=== PATIENT | female | born 1965 | race Caucasian/White ===

== ENCOUNTER 2025-03-30 13:05 | Outpatient (REF) | payer BC, SELFPAY ==
[2025-03-30 18:02] LABS: MANUAL DIFF FLAG NO
[2025-03-30 18:19] LABS: Hematocrit 41.7 % (37.0-47.0); Hemoglobin 14.0 g/dl (12.0-16.0); Imm Gran Abs Auto 0.03 X10*3/uL (0.00-0.03); Imm Gran Pct Auto 0.3 % (0.0-0.4); Lymphocytes Absolute Auto 3.1 X10*3/uL (1.2-4.9); Mean Corpuscular HGB Conc 33.6 g/dl (31.0-35.0); Mean Corpuscular Hemoglobin 30.6 pg (27.0-33.0); Mean Corpuscular Volume 91.0 fL (80.0-98.0); NRBC Abs Auto 0.000 X10*3/uL (0.0-0.012); NRBC Pct Auto 0.0 /100WBC (0.0-0.2); Platelet Count 331 X10*3/uL (160-400); Red Blood Count 4.58 X10*6/uL (4.20-5.50); White Blood Count 10.6 X10*3/uL (4.8-10.8)
[2025-03-30 18:37] LABS: Alanine Aminotransferase 18 U/L (0-31); Albumin Level 4.4 g/dL (3.5-5.0); Alkaline Phosphatase 98 U/L (39-117); Anion Gap 11 (12-20); Aspartate Amino Transferase 22 U/L (5-31); Blood Urea Nitrogen 17 mg/dL (9-16); Calcium 9.6 mg/dL (8.4-10.2); Carbon Dioxide 30 mmol/L (22-29); Chloride 103 mmol/L (96-108); Cholesterol 262 mg/dL (<200); Estimated Glomerular Filt Rate > 60; HDL Cholesterol 66 mg/dL (>40); Potassium 3.7 mmol/L (3.3-5.1); Sodium 140 mmol/L (135-145); Total Protein 7.3 g/dL (6.5-8.0); Triglycerides 114 mg/dL (<150)
== END 2025-03-30 13:06 | disposition home or self-care (01) ==
LOC: HO.WFDLDS 13:05
PROVIDERS: PCP Internal Medicine; Visit Provider Internal Medicine
DX: Z00.00 Encounter for general adult medical examination without abnormal findings (principal); Z13.228 Encounter for screening for other metabolic disorders; Z13.0 Encounter for screening for diseases of the blood and blood-forming organs and certain disorders involving the immune mechanism; Z13.220 Encounter for screening for lipoid disorders; F33.41 Major depressive disorder, recurrent, in partial remission; M17.0 Bilateral primary osteoarthritis of knee; Z98.890 Other specified postprocedural states
CPT/HCPCS: 36415; 80053; 80061; 83036; 84443; 85025; 96127

== ENCOUNTER 2025-03-30 13:05 | Outpatient (AMB) | payer BC, SELFPAY ==
--- NOTE | 2025-03-30 13:12 | MHC.PC.OV ---
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 Intake Note: New patient visit Home Office Representative Required: No Allergies No Known Allergies Allergy (Verified 03/30/25 13:13) Tobacco use date assessed: 03/30/25 Dental Screening Dental Screen Date: 03/30/25 Did you have a dental visit in the last 12 months?: Yes Did you have a dental problem in the last 6 months where you did not have access to dental care?: No Was dental information given to patient?: Patient has dentist HPI HPI Comments History of Present Illness Details 59 year old female with past medical history of anxiety/depression presenting to [facility]. Transferring from [facility]. Records not yet received. BH: on buproprion 300mg daily, citalopram 20mg daily. Feels stable on these medications. MSK: History of left knee surgery-Dr Shane. Bilateral knee osteoarthritis-hard to walk upstairs. Bone on bone Mammo: May 2024 Colonoscopy: Jul 2023-[facility] -10 year repeat Declines flu vaccination ROS CONSTITUTIONAL: Denies weight loss, fever and chills. HEENT: Denies changes in vision and hearing. RESPIRATORY: Denies SOB and cough. CV: Denies palpitations and CP GI: Denies abdominal pain, nausea, vomiting and diarrhea. : Denies dysuria and urinary frequency. MSK:see HPI SKIN: Denies rash and pruritus. NEUROLOGICAL: Denies headache PSYCHIATRIC: Denies recent changes in mood. PHYSICAL EXAM: GENERAL: Alert and oriented x 3. NAD EYES: EOMI. Anicteric. HENT: Moist mucous membranes. No scleral icterus. No cervical lymphadenopathy. LUNGS: Clear to auscultation bilaterally. CARDIOVASCULAR: Regular rate and rhythm. No murmur. No JVD. ABDOMEN: Soft, non-tender +bs EXTREMITIES: No edema. Non-tender. SKIN: No rashes or lesions. Warm. NEUROLOGIC: No focal neurological deficits. CN II-XII grossly intact PSYCHIATRIC: Cooperative. 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 1. Little interest or pleasure in doing things: not at all 2. Feeling down, depressed, or hopeless: not at all 3. Trouble falling or staying asleep, or sleeping too much: not at all 4. Feeling tired or having little energy: several days 5. Poor appetite or overeating: not at all 6. Feeling bad about yourself - or that you are a failure or have let yourself or your family down: not at all 7. Trouble concentrating on things, such as reading the newspaper or watching television: not at all 8. Moving or speaking so slowly that other people could have noticed. Or the opposite - being so fidgety or restless that you have been moving around a lot more than usual: not at all 9. Thoughts that you would be better off or of hurting yourself in some way: not at all Total score: 1 Depression Screening Interpretation: Negative Depression Screening Done: Yes 45093 - PHQ-9 Billing: Yes Source: Developed by Drs. Sincere Cabrera, Sofi Tony, Ramiro Roberson and colleagues, with an educational itma from [employer]. Thrive Questionnaire Date Thrive assessed: 03/30/25 I am a: Patient What is your living situation today?: I have a steady place to live Within the past 12 months, did the food you bought not last and you didn't have the money to get more?: Never true Within the past 12 months, did you worry whether your food would run out before you got money to buy more?: Never true Do you have trouble paying for medicines?: No Do you have trouble getting transportation to medical appointments?: No Do you have trouble paying your heating and electricity bill?: No Do you have trouble taking care of your child, family member or friend?: No Do you have trouble with day-to-day activities such as bathing, preparing meals, shopping, managing finances, etc.?: No Are you currently unemployed and looking for a job?: No Are you interested in more education?: No Please select the resources that you would like help with: None Currently or been in a relationship where the following occur: No concerns reported THRIVE Score: 0 AUDIT C Alcohol Use Questionnaire (AUDIT-C) 1. How often do you have a drink containing alcohol?: Never 3. How often do you have six or more drinks on one occasion?: Never Total Score: 0 JESUS-7 AMB Questionnaire JESUS-7 Date JESUS - 7 assessed: 03/30/25 Feeling nervous, anxious, or on edge: 0 = Not at all Not being able to stop or control worryin = Not at all Worrying too much about different things: 0 = Not at all Trouble relaxin = Not at all Being so restless that it is hard to sit still: 0 = Not at all Becoming easily annoyed or irritable: 0 = Not at all Feeling afraid as if something awful might happen: 0 = Not at all Total JESUS-7 score (0-4 normal; 5-9 mild; 10-14 moderate; 15-21 severe): 0 Source: Developed by Drs. Sincere Cabrera, Sofi Tony, Ramiro Roberson and colleagues, with an educational tima from [employer]. JESUS-7 Assessment Billing JESUS-7 Assessment Tool: JESUS-7 Assessment 19585 Physical exam (Primary Care) Vital Signs: Last Vital Signs Temp 98.3 F 03/30/25 13:17 Pulse 97 03/30/25 13:17 Resp 12 03/30/25 13:17 BP 108/72 03/30/25 13:17 Pulse Ox 97 03/30/25 13:17 Oxygen Delivery Method Room Air 03/30/25 13:17 BMI result Body Mass Index 30.0 Tobacco/Smoking Status: Tobacco use Status Tobacco use date assessed 03/30/25 03/30/25 13:23 Patient Tobacco Use Status Never used Tobacco 03/30/25 13:23 e-Cigarette/Vaping Use Never Used 03/30/25 13:23 PHQ-9: PHQ-9 Score PHQ-9: Total score 1 03/30/25 13:26 Depression Screening Interpretation: Negative Thrive Assessment: Date of Thrive Assessment Date Thrive assessed 03/30/25 03/30/25 13:26 Currently or been in a relationship where the following occur: No concerns reported Coding Level of Care Code New Pt Prev Care 40-64y(29678) Diagnoses Physical exam Z00.00 Recurrent major depressive disorder, in partial remission F33.41 Depression Type: major depressive disorder Major depression recurrence: recurrent Active/Remission status: in partial remission Primary osteoarthritis of both knees M17.0 Osteoarthritis type: primary Laterality: bilateral Additional Codes JESUS-7 Assessment Billing - JESUS-7 Assessment Tool: JESUS-7 Assessment [id number] ([id number]) PHQ-9 - 05917 - PHQ-9 Billing: Yes ([id number]) Assessment & Plan Assessment & Plan (1) Physical exam: Code(s): Z00.00 - Encounter for general adult medical examination without abnormal findings (2) Depression: Code(s): F32.A - Depression, unspecified Category: Medical Qualifiers: Depression Type: major depressive disorder Major depression recurrence: recurrent Active/Remission status: in partial remission Qualified Code(s): F33.41 - Major depressive disorder, recurrent, in partial remission (3) Knee osteoarthritis: Code(s): M17.9 - Osteoarthritis of knee, unspecified Category: Medical Qualifiers: Osteoarthritis type: primary Laterality: bilateral Qualified Code(s): M17.0 - Bilateral primary osteoarthritis of knee Plan 59 year old to establish care & CPE Past medical, surgical, social reviewed Preventive measures for age discussed Depression is well controlled Knee OA-follows with ortho prn Labs ordered Orders: Orders MM tomosynthesis screening BI Today Z12.31 - Encounter for screening mammogram for malignant neoplasm of breast Complete Blood Count Auto Diff Today F32.A - Depression, unspecified, Z13.0 - Encounter for screening for diseases of the blood and blood-forming organs and certain disorders involving the immune mechanism, Z13.220 - Encounter for screening for lipoid disorders, Z13.228 - Encounter for screening for other metabolic disorders, Z98.890 - Other specified postprocedural states Lipid Panel Today F32.A - Depression, unspecified, Z13.0 - Encounter for screening for diseases of the blood and blood-forming organs and certain disorders involving the immune mechanism, Z13.220 - Encounter for screening for lipoid disorders, Z13.228 - Encounter for screening for other metabolic disorders, Z98.890 - Other specified postprocedural states TSH reflex Free T4 Today F32.A - Depression, unspecified, Z13.0 - Encounter for screening for diseases of the blood and blood-forming organs and certain disorders involving the immune mechanism, Z13.220 - Encounter for screening for lipoid disorders, Z13.228 - Encounter for screening for other metabolic disorders, Z98.890 - Other specified postprocedural states Comprehensive Met. Panel Today F32.A - Depression, unspecified, Z13.0 - Encounter for screening for diseases of the blood and blood-forming organs and certain disorders involving the immune mechanism, Z13.220 - Encounter for screening for lipoid disorders, Z13.228 - Encounter for screening for other metabolic disorders, Z98.890 - Other specified postprocedural states Hemoglobin A1c Today F32.A - Depression, unspecified, Z13.0 - Encounter for screening for diseases of the blood and blood-forming organs and certain disorders involving the immune mechanism, Z13.220 - Encounter for screening for lipoid disorders, Z13.228 - Encounter for screening for other metabolic disorders, Z98.890 - Other specified postprocedural states Medications: New bupropion HCl XL 300 mg PO DAILY 90 tabs 3RF citalopram 20 mg PO DAILY 90 tabs 3RF
[2025-03-30 13:17] VITALS: BP 108/72; PULSE 97; RESP 12; TEMP 36.8; O2SAT 97
== END 2025-03-30 13:43 | disposition home or self-care (01) ==
LOC: HO.HMCFM 13:05
PROVIDERS: PCP Internal Medicine; Visit Provider Internal Medicine
DX: Z00.00 Encounter for general adult medical examination without abnormal findings (principal); F33.41 Major depressive disorder, recurrent, in partial remission; M17.0 Bilateral primary osteoarthritis of knee